=== PATIENT | female | born 1955 | race Caucasian/White ===

== ENCOUNTER 2022-07-25 06:48 | Observation (INO) ==
--- NOTE | 2022-06-23 15:36 | PAT Medication Instructions ---
Medication Instructions Date of Service June 23, 2022 Home Medications cholecalciferol (vitamin D3) 25 mcg (1,000 unit) tablet 2,000 unit PO QAM levothyroxine 200 mcg tablet 375 mcg PO QAM lisinopril 40 mg tablet 40 mg PO QAM lorazepam 1 mg tablet 1 mg PO HS PRN amlodipine 5 mg tablet 10 mg PO QAM famotidine 20 mg tablet 20 mg PO HS PRN fexofenadine 180 mg tablet 180 mg PO UD PRN hydrochlorothiazide 25 mg tablet 25 mg PO UD PRN naproxen 500 mg tablet 500 mg PO UD PRN omeprazole 20 mg tablet,delayed release 20 mg PO QAM ASK your surgeon for instructions naproxen 500 mg tablet 500 mg PO UD PRN DO NOT take the morning of surgery cholecalciferol (vitamin D3) 25 mcg (1,000 unit) tablet 2,000 unit PO QAM lisinopril 40 mg tablet 40 mg PO QAM fexofenadine 180 mg tablet 180 mg PO UD PRN hydrochlorothiazide 25 mg tablet 25 mg PO UD PRN Take morning of surgery With a small sip of water, OTHERWISE NOTHING TO EAT OR DRINK AFTER MIDNIGHT: levothyroxine 200 mcg tablet 375 mcg PO QAM amlodipine 5 mg tablet 10 mg PO QAM omeprazole 20 mg tablet,delayed release 20 mg PO QAM Take evening before surgery lorazepam 1 mg tablet 1 mg PO HS PRN(if needed) famotidine 20 mg tablet 20 mg PO HS PRN(if needed) Other Notes If you have any questions please call us at [phone] or [phone] or [phone] or [phone]
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
[~2022-07-25 06:48] MED LIST: ACETAMINOPHEN 500 MG TAB PO SCH; FAMOTIDINE 20 MG TAB PO SCH; GABAPENTIN 600 MG DOSE PO SCH; LR 500ML BOLUS, THEN 15ML/HR IV SCH; LR 60ML/HR IV SCH; ORTHO JOINT MIX INFIL SCH; ROPIVACAINE 0.5% 5 MG/ML 30 ML VIAL ONE; TRANEXAMIC ACID 1,000 MG **IV Intra-op IV SCH; TRANEXAMIC ACID 1,000 MG **IV Pre-op IV SCH; ceFAZolin 2000MG 2,000 MG/15 ML SYR IV SCH; dexAMETHasone 4 MG TAB PO SCH
[2022-07-25] MEDS ORDERED: MIDAZOLAM HCL 1 MG/ML 2ML VIAL ONE (07:24)
--- NOTE | 2022-07-25 08:06 | History & Physical Bridge Note ---
Date of Service July 25, 2022 History & Physical Bridge Note I have examined the patient, reviewed the History & Physical and in the interval since the performance of the History & Physical I have noted the following changes of clinical significance: no changes noted
[2022-07-25] MEDS ORDERED: ORTHO JOINT ANESTHETIC ONE (08:36)
[2022-07-25] MEDS ORDERED: ONDANSETRON INJ 2 MG/ML 2 ML VIAL ONE (09:23)
[2022-07-25] MEDS ORDERED: LIDOCAINE 2% 2 ML VIAL/AMP(20MG/ML) INFIL ONE (09:23)
[2022-07-25] MEDS ORDERED: PROPOFOL IV EMULSION 10 MG/ML 20 ML VIAL IV ONE (09:23)
[2022-07-25] MEDS ORDERED: ATROPINE SULFATE 0.1 MG/ML 10ML SYR IV PRN (09:59)
[2022-07-25] MEDS ORDERED: ePHEDrine sulfate 50 MG/ML AMP IV PRN (09:59)
[2022-07-25] MEDS ORDERED: HYDROmorphone INJ 1 MG/ML SYRINGE IV PRN (09:59)
[2022-07-25] MEDS ORDERED: ONDANSETRON INJ 2 MG/ML 2 ML VIAL IV PRN ×2 (09:59→12:15)
[2022-07-25] MEDS ORDERED: KETOROLAC 30 MG/ML VIAL IV PRN (09:59)
--- NOTE | 2022-07-25 10:16 | Operative Report ---
PG Post Operative Report Pre & Post Diagnosis Operation Date: 07/25/22 09:00 Pre-Op Diagnosis: Arthritis of right hip Post-Op Diagnosis: Arthritis of right hip I identified the patient and participated in the time-out.: Yes Procedure Operation Date: 07/25/22 09:00 Actual Procedures p Right Anterior Total Hip Arthroplasty(Right) - Arben Vo DO Surgeon Arben Vo DO [facility] Director Arben Avalos PA-C Estimated Blood Loss 200 Findings Consistent with Post-Op Diagnosis Specimens Right femoral head Description of Procedure Implants used I used a ZimmerBiomet total hip arthroplasty system with a size 5 high offset Avenir Complete stem, a 50 mm G7 cup with a 25mm screw, an E1 polyethylene liner, a 36 mm ceramic head with a 0 neck. Wanda arrived at the hospital for the above procedure. She was seen in the preoperative holding area and the operative extremity was identified and signed. She was given a spinal anesthetic, a preoperative antibiotic, and TXA. She was then taken back to the operating room and laid on the table in the supine position. She was given basic sedation. The operative leg was secured to a Puristst leg positioner. The hip was then prepped and draped in sterile fashion. A timeout was done and the patient and the operative extremity was properly identified. An anterior approach was used. Dissection was taken down through the fascia and the tensor muscle belly was retracted laterally and the rectus was retracted medially. The circumflex vessels were identified and ligated. The capsule was then incised and tagged for later repair. The femoral neck was then cut and the femoral head was removed. The acetabulum was exposed. Time was spent doing a complete circumferential labral release. Sequential reaming of the acetabulum up to a size 49 reamer was done. Final reamings were done under fluoroscopy to ensure appropriate version. A Biomet 50 mm G7 cup was then impacted into place. A single 25 mm screw was placed. The E1 polyethylene liner was then snapped into place. Surrounding soft tissues were then injected with 100 cc of an orthopedic pain control cocktail. The proximal femur was then exposed. Sequential broaching up to a size 5 broach was done. Off that broach a size 36 head with a 0 neck was trialed. The hip was reduced and fluoroscopic images showed anatomic alignment of the implants in acceptable length. The broach was removed. The final size 5 high offset Avenir Complete stem was then impacted into place. A ceramic 36 mm head with a 0 neck was then impacted onto the stem and the hip was reduced. Final fluoroscopic images showed anatomic alignment of the hip. The capsule was then closed with #1 Vicryl suture. A dilute betadyne lavage was then done for 3 minutes. The joint was then irrigated with normal saline solution. The fascia was closed with #1 PDS suture. Skin was closed with 2-0 Vicryl, idris, and a Silverlon dress ing. She was then transferred to a hospital bed and taken to the post anesthesia care unit in stable condition. She tolerated the procedure well. Arben Aavlos PA-C, was present for the entire procedure. He was critical for patient positioning, prepping, draping, retraction exposure, wound closure and application of sterile dressing. I attest to the content of the Intraoperative Record and any orders documented therein. Any exceptions are noted below.
--- NOTE | 2022-07-25 11:14 | Fluoroscopy Report ---
FL hip RT 1V CLINICAL HISTORY: RT ANTERIORright hip arthroplasty COMPARISON STUDY: Radiographic images of the right hip of same day FLUOROSCOPY TIME: 16.8 seconds FLUOROSCOPY IMAGES: 1. EXPOSURE DOSE: 1.67 mGy Air Kerma FINDINGS: Satisfactory alignment of the right hip total arthroplasty. No acute fracture or unexpected opaque foreign body. IMPRESSION: Fluoroscopic assistance as above. ACT 112: Negative or not required by law. Electronically signed by: [place] David M.D. 07/25/2022 11:13 AM
--- NOTE | 2022-07-25 12:14 | Anesthesiology Progress Note ---
Date of Service July 25, 2022 Anesthesia Post Procedure Vital Signs Vital Signs: Temp Pulse Pulse Resp BP Pulse Ox O2 Del Method 07/25/22 11:10 55 L 12 144/78 H 99 Oxymask 07/25/22 11:00 59 L 14 133/88 100 Oxymask 07/25/22 11:40 51 L 12 131/76 100 Room Air 07/25/22 11:30 36.3 C L 52 L 11 L 128/78 97 Room Air 07/25/22 11:20 54 L 14 126/74 99 Oxymask 07/25/22 10:50 65 12 140/84 94 Oxymask 07/25/22 10:42 36.1 C L 74 14 135/79 100 Oxymask 07/25/22 07:20 36.6 C 68 20 190/104 H 95 Room Air O2 Flow Rate 07/25/22 11:10 2 07/25/22 11:00 9 07/25/22 11:40 07/25/22 11:30 07/25/22 11:20 2 07/25/22 10:50 9 07/25/22 10:42 9 07/25/22 07:20 Transfer of Care Handoff Completed per policy Notes Mental Status: alert / awake / arousable Patient Amnestic to Procedure: Yes Nausea / Vomiting: adequately controlled Pain: adequately controlled Airway Patency, RR, SpO2: stable & adequate BP & HR: stable & adequate Hydration State: stable & adequate Anesthetic Complications: no major complications apparent
[2022-07-25] MEDS ORDERED: HYDROmorphone INJ 0.5 MG/0.5 ML SYR IV PRN (12:15)
[2022-07-25] MEDS ORDERED: LORazepam 1 MG TAB PO PRN (12:15)
[2022-07-25] MEDS ORDERED: FEXOFENADINE HCL 180 MG TAB PO PRN (12:15)
[2022-07-25] MEDS ORDERED: METOCLOPRAMIDE HCL INJ 5 MG/ML 2 ML VIAL IV PRN (12:15)
[2022-07-25] MEDS ORDERED: bisacodyL 10 MG SUPP PR PRN (12:15)
[2022-07-25] MEDS ORDERED: NALOXONE HCL 0.4 MG/1 ML VIAL/CARP IV PRN (12:15)
[2022-07-25] MEDS ORDERED: FAMOTIDINE 20 MG TAB PO PRN (12:15)
[2022-07-25] MEDS ORDERED: oxyCODONE HCL IR 5 MG TAB (IMMEDIATE RELEASE) PO PRN (12:15)
[2022-07-25] MEDS ORDERED: hydroCHLOROthiazide 25 MG TAB PO PRN (12:15)
[2022-07-25] MEDS ORDERED: MAGNESIUM HYDROXIDE SUSP 30 ML UDC PO PRN (12:15)
--- NOTE | 2022-07-25 12:53 | XRay Report ---
XR hip 1V RT w pelvis CLINICAL HISTORY: Postoperative evaluation. COMPARISON: Pelvis and right hip radiographs February 07, 2022. FINDINGS: Alignment of the total right hip arthroplasty is anatomic. There is no periprosthetic frac ture. No unexpected radiopaque foreign bodies are present. There are skin idris. Left hip arthropla sty is unchanged in appearance. IMPRESSION: Expected findings following total right hip arthroplasty. ACT 112: Negative or not required by law. Electronically signed by: Jim Ruffin M.D. 07/25/2022 12:52 PM
[2022-07-25] MEDS: ACETAMINOPHEN 500 MG TAB PO SCH ×2 (14:11→22:02)
[2022-07-25] MEDS: SODIUM CHLORIDE 0.9% 1000ML 1,000 ML IV SCH (14:11)
[2022-07-25] MEDS: KETOROLAC 30 MG/ML VIAL IV SCH ×2 (14:12→18:14)
[2022-07-25] MEDS: ceFAZolin 2000MG 2,000 MG/15 ML SYR IV SCH (16:34)
[2022-07-25] MEDS: ASPIRIN 81 MG ECTAB PO SCH (20:31)
[2022-07-25] MEDS: DOCUSATE SODIUM 100 MG CAP PO SCH (20:31)
[2022-07-25] MEDS ORDERED: SENNA 8.6 MG TAB PO SCH (21:00)
[2022-07-26] MEDS: ceFAZolin 2000MG 2,000 MG/15 ML SYR IV SCH (00:51)
[2022-07-26] MEDS: KETOROLAC 30 MG/ML VIAL IV SCH ×3 (00:51→13:27)
[2022-07-26] MEDS: SODIUM CHLORIDE 0.9% 1000ML 1,000 ML IV SCH (00:51)
[2022-07-26] MEDS: ACETAMINOPHEN 500 MG TAB PO SCH ×2 (05:43→13:27)
--- NOTE | 2022-07-26 06:24 | Orthopedic Progress Note ---
Date of Service July 26, 2022 Assessment & Plan (1) Status post right hip replacement: Overall she is doing fairly well. The dressing will be changed. She is on aspirin for DVT prophylaxis. She will be seen by physical therapy today for ambulation and range of motion exercises. She can be discharged home later today. She will follow-up with orthopedics in 2 weeks. Rabia Muñoz was seen and examined at bedside this morning. Overall she seems to be doing okay. She had a little bit of drainage from her incision last night. She was able to get up and ambulate to the bathroom. She has no new complaints.. Review of Systems All systems reviewed & are unremarkable except as noted in HPI & below. Physical Exam On physical examination of the right hip, the dressing has a little bit of bloody drainage at the bottom. Her leg lengths are equal. She has active dorsiflexion plantarflexion of her right ankle.. Results & Data Results & Data Laboratory Results . Diagnostic Findings Postoperative x-rays of the right hip show the prosthesis to be in anatomic alignment without any evidence of fracture, screws, or loosening. PG Care Time/CCT Total # of Minutes Spent Total Time Spent with Patient: Total time spent is greater than 50% in coordination of care (as documented) at patient's floor/unit and/or counseling patient: Coding Level of Care Code 43484 Post Operative Follow-Up Diagnoses Status post right hip replacement Z96.641
--- NOTE | 2022-07-26 06:26 | Discharge Summary ---
Date of Service July 26, 2022 Admission HPI (Per Admitting) Wanda is a pleasant 66-year-old female who has been dealing with chronic increasing right hip and groin pain. 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 Unfortunately, she is really struggling with her right hip. All of her pain is in her groin. She has trouble ambulating. X-rays and clinical examination were diagnostic for advanced osteoarthritis of the right hip. After found conservative treatment, she has elected proceed with a right total hip arthroplasty. Admission Exam (Per Admitting) On physical examination the right hip, she has decreased range of motion. She has pain with forced internal and external rotation.. Principal Diagnosis Same as "Discharge Diagnosis" noted below under Discharge Instructions. Discharge Exam On physical examination of the right hip, the dressing has a little bit of bloody drainage at the bottom. Her leg lengths are equal. She has active dorsiflexion plantarflexion of her right ankle.. Discharge Data Procedures Performed Operation Date: 07/25/22 09:00 Actual Procedures p Right Anterior Total Hip Arthroplasty(Right) - Arben Vo DO Ordered Studies 07/25/22 09:00 FL hip RT 1V Routine Hospital Course (1) Status post right hip replacement: On July 25, 2022 Wanda arrived at [facility] and underwent a right hip replacement without complication. She had a general anesthetic. Postoperatively she was started on aspirin for DVT prophylaxis and transferred to the general orthopedic floors. Her hospital course was uneventful. On postop day #1, her vital signs were stable and her pain was well controlled. She was able to participate well with physical therapy doing ambulation and range of motion exercises. She was then discharged home. She will follow-up with orthopedics in 2 weeks. PG Care Time/CCT Total # of Minutes Spent Total Time Spent with Patient: Total time spent is greater than 50% in coordination of care (as documented) at patient's floor/unit and/or counseling patient: Discharge Plan Discharge Items Patient Disposition: Home - Home Health Services Reason For Visit: POST SURGICAL CARE Discharge Diagnosis: Right hip replacement Activity: Per Instructions section Non-emergency contact: Surgeon Call non-emergency contact if: your wound has increased redness and your wound has increased drainage Follow-up/Referrals: Trenton Majano DO [Outside Practitioners] - Diet: Regular Addtl Attending Provider Instructions: Activity and Therapy Recommendations: * If you are using [facility] then therapy will be provided at your home until they feel you have accomplished all of your goals. * If you are using [facility] then Physical Therapy will be provided until they feel you are ready to start Outpatient Physical Therapy. * If you are not using home therapy then Outpatient Physical Therapy should start about 3-5 days from your day of surgery. Therapy will last about 6-10 weeks * You were shown a series of exercises in the hospital. Do these exercises three times each day including the exercises you were shown in physical therapy. * Get up and walk several times each day.~ For the first four weeks, try not to stand or walk for more than one hour at a time. If you do stand or walk for more than one hour, you will not hurt anything, but your leg will likely swell.~~ * As you feel comfortable, you may change from the walker or crutches to a cane and~then to independent walking. Medications: * Narcotic You will likely be sent home from the hospital with a prescription for the narcotic pain medication that worked best throughout your stay. * Aspirin Most patients will be required to take Aspirin 81mg twice a day for 6 weeks after surgery. This is obtained [id number] and a prescription is not necessary. * Other medications may be prescribed for specific circumstances. If you have any questions, please call the office at . * Resume previous home medications unless otherwise instructed TEDs/Elastic Stockings: The white elastic stockings help limit swelling and prevent blood clots from forming in your legs. The more you wear them, the more they work. Wear them for six weeks. Dressing Care: Leave the Silverlon dressing in place for 7 days. After 7 days you may remove the dressing. If the incision is not draining then you may leave the idris open to air. If there is a little bit of drainage or if the idris are getting stuck on your clothing then cover the incision with a dry dressing. The idris will be removed at your 2 week follow-up appointment. Showering: You may shower with the Silverlon dressing in place. Do not let the shower spray hit the dressing directly. Pat the Silverlon dressing dry. If the dressing becomes wet underneath, then simply remove the dressing. Keep the incision dry until you are 7 days out from the day of surgery. After 7 days you may remove the Silverlon dressing and shower with the idris exposed. Let soapy water run over the idris and pat them dry. Do not scrub or soak the incision. Things To Watch For: * Drainage from the incision site that occurs more than one week after your surgery. * Increased redness at the incision site. * Fever above 102 degrees Fahrenheit. * Unusual chest pain or shortness of breath. * Call [facility] at with any of the above proble ms Follow-Up Visit: Follow-up with Dr. Vo's PA (Arben Avalos) 2-3 weeks after your day of surgery. He will remove your idris and answer any questions. If you have any additional questions or concerns, Dr Vo is usually in the office at the same time and will be available An appointment was probably scheduled when you signed-up for surgery in the office. If you have any questions call Office Instructions: More detailed instructions as well as Frequently Asked Questions were provided in a folder by our office when you signed-up for surgery. Please review these instructions when you get home. If you have any further questions or concerns, please feel free to call the office at [phone] Pending Studies at Discharge: No Stand-Alone Forms: My [facility], Smoking Cessation Medications and DC Order Prescriptions: New aspirin 81 mg Tablet,Delayed Release (Dr/Ec) 81 mg PO BID 42 Days Qty: 84 0RF oxycodone-acetaminophen 5-325 mg tablet 1 tab PO Q6H PRN (Reason: pain) Qty: 30 0RF Continued levothyroxine 200 mcg Tablet 375 mcg PO QAM Qty: 0 Patient Comments: TAKE 100 + 200 + 75 MCG TO TOTAL 375 lorazepam 1 mg Tablet 1 mg PO HS PRN (Reason: Anxiety) Qty: 0 lisinopril 40 mg Tablet 40 mg PO QAM Qty: 0 cholecalciferol (vitamin D3) 1,000 unit Tablet 2,000 unit PO QAM Qty: 0 amlodipine 5 mg Tablet 10 mg PO QAM fexofenadine 180 mg Tablet 180 mg PO UD PRN (Reason: ALLERGIES) famotidine 20 mg Tablet 20 mg PO HS PRN (Reason: Heartburn) hydrochlorothiazide 25 mg Tablet 25 mg PO UD PRN (Reason: LEG SWELLING/HX BLOOD PRESSURE) Patient Comments: MAYBE ONCE OR TWICE A WEEK naproxen 500 mg Tablet 500 mg PO UD PRN (Reason: Pain) omeprazole 20 mg Tablet,Delayed Release (Dr/Ec) 20 mg PO QAM Admission Data Admit Date/Time: 07/25/22 10:44 Attending Provider: Arben Vo Admit Provider: Arben Vo Primary Care Provider: Mook Rene
[2022-07-26] MEDS ORDERED: LEVOTHYROXINE SODIUM 125 MCG TABLET PO SCH (06:30)
[2022-07-26 07:53] VITALS: BP 127/76; TEMP 97.5
[2022-07-26] MEDS: DOCUSATE SODIUM 100 MG CAP PO SCH (07:59)
[2022-07-26] MEDS: ASPIRIN 81 MG ECTAB PO SCH (07:59)
[2022-07-26] MEDS ORDERED: dexAMETHasone 4 MG TAB PO SCH (08:00)
[2022-07-26] MEDS ORDERED: amLODIPine BESYLATE 5 MG TAB PO SCH (09:00)
[2022-07-26] MEDS ORDERED: lisinopril 40 MG TAB PO SCH (09:00)
[2022-07-26] MEDS ORDERED: MULTIVITAMIN TAB PO SCH (09:00)
[2022-07-26] MEDS ORDERED: PANTOprazole 40 MG TAB PO SCH (09:00)
[2022-07-26 14:15] VITALS: PULSE 51; O2SAT 97
== END 2022-07-26 14:45 | disposition home health service (06) ==
LOC: ASU 06:48 → 3E 06:48